=== PATIENT | female | born 1950 | race Caucasian/White ===

== ENCOUNTER → 2025-01-19 08:14 | Outpatient (REF) | payer MEDICARE, OTHER, SELFPAY | LOC: HWRAD 08:14 | PROVIDERS: ATTENDING PHYSICIAN Obstetrics & Gynecology; FAMILY PHYSICIAN Family Medicine | DX: R10.2 Pelvic and perineal pain (principal) | CPT/HCPCS: 76830; 76856 ==

== ENCOUNTER → 2025-02-12 09:32 | Outpatient (REF) | payer MEDICARE, OTHER, SELFPAY | LOC: RAD 09:32 | PROVIDERS: ATTENDING PHYSICIAN Surgery; FAMILY PHYSICIAN Internal Medicine | DX: N32.1 Vesicointestinal fistula (principal) | CPT/HCPCS: 74177; Q9967 ==

== ENCOUNTER 2025-05-11 05:55 | Inpatient (IN) | payer MEDICARE, OTHER, SELFPAY ==
[2025-05-08 09:39] LABS: Hematocrit 40.1 % (37.0-47.0); Hemoglobin 14.0 g/dL (12.0-16.0); Mean Corp Hgb Conc. 34.9 g/dL (33.0-37.0); Mean Corpuscular Volume 89.1 fL (81.0-99.0); Platelet Count 292 10^3/uL (130-400); Red Cell Dist. Width 12.6 % (11.5-14.5)
[2025-05-08 09:46] LABS: APTT 25.0 Sec (23.4-35.0); INR 1.00; PT 13.5 Sec (11.4-14.6)
[2025-05-08 10:03] LABS: ALT (SGPT) 30 U/L (0-35); AST (SGOT) 31 U/L (14-36); Albumin 4.6 g/dl (3.5-5.0); Alkaline Phosphatase 58 U/L (38-126); Blood Urea Nitrogen 13 mg/dl (7-17); Calcium 10.0 mg/dl (8.4-10.2); Carbon Dioxide 31 mmol/L (22-30); Chloride 99 mmol/L (98-107); Glucose 101 mg/dl (70-99); Potassium 4.2 mmol/L (3.5-5.1); Sodium 137 mmol/L (135-145); Total Protein 8.1 g/dl (6.3-8.2); eGFR > 60.00
[2025-05-08 11:50] LABS: Glycohemoglobin (HgbA1c) 5.7 % (4.0-5.6)
[2025-05-08 14:08] VITALS: BMI 26.0
--- NOTE | 2025-05-08 15:30 | PTCARENOTE ---
Dr Hollingsworth reviewed abnormal EKG, no further action requested.
[2025-05-11] VITALS (13 sets, daily range): BP systolic 0–160; BP diastolic 54–89; BMI 26.0
[2025-05-11] MEDS: HEPARIN 5000 UNITS SC (06:31)
[2025-05-11] MEDS: TYLENOL 1000 MG PO (06:31)
[2025-05-11] MEDS: NORMOSOL-R/PLASMALYTE-A 1000 IV ×3 (06:48→23:34)
--- NOTE | 2025-05-11 11:54 | W.IMMPOSTOP ---
Documented by User: LIZY Cisneros 05/11/25 12:01
Surgical Immed Post Op Note
-
Primary Surgeon: Sánchez Larkin M.D.
Assisting Surgeon: IBAN Joe, and HILARY Muñoz
Pre Op Diagnosis: Colovaginal fistula
Post Op Diagnosis: Colovaginal fistula
Procedure Performed: Surgical repair of a colovaginal fistula, resection of the sigmoid colon, ureteral stent placement
Anesthesia Type: General
Specimen / Cultures: Sigmoid colon
Estimated Blood Loss: 15 cc
Complications: None
Operative Findings: Colovaginal fistula, fistula connecting adjacent portions of the bowel

Documented by User: Ezequiel Larkin MD 05/11/25 12:08
Surgical Immed Post Op Note
-
Primary Surgeon: Sánchez Larkin M.D.
Assisting Surgeon: IBAN Joe, and HILARY Muñoz
Pre Op Diagnosis: Colovesical fistula
Post Op Diagnosis: Colovesical fistula
Procedure Performed: Cystoscopy with bilateral ureteral stents/ICG (Abhay Lantigua MD)
Robotic sigmoid colectomy with intracorporeal anastomosis
Robotic cystorraphy by Dr. Lantigua
Anesthesia Type: General
Specimen / Cultures: Sigmoid colon (suture is proximal)
Estimated Blood Loss: 15 cc
Complications: None
Operative Findings: Colovesical fistula to the dome of the bladder on the left
28mm EEA
Normal leak test
#19 Triston drain in the pelvis
Patient's updated via telephone
[2025-05-11] MEDS: TYLENOL 650 MG PO ×3 (13:54→23:34)
[2025-05-11] MEDS: TORADOL 15 MG IV ×2 (13:55→23:34)
--- NOTE | 2025-05-11 14:29 | PTCARENOTE ---
Received patient from PACU via bed around 1330 in stable condition. 3 lap sites to abdomen with surgical glue DARIO as well as 1 suprapubic incision with surgical glue dario. Urinary catheter in place with L uretal stent. Patient denied pain. Patient
oriented to room. Call abdalla in reach.
[2025-05-11] MEDS: REFRESH EYE DROPS (PF) 1 DROPS RIGHT EYE (17:05)
[2025-05-11] MEDS: TYLENOL PO (17:07)
[2025-05-11] MEDS: TORADOL IV (17:45)
[2025-05-11] MEDS: ORETIC 12.5 MG PO (20:57)
[2025-05-11] MEDS: BENICAR 20 MG PO (20:57)
[2025-05-11] MEDS: LIPITOR 10 MG PO (20:57)
[2025-05-12] MEDS: TYLENOL 650 MG PO ×6 (03:06→23:07)
[2025-05-12 03:36] VITALS: BP 105/64
[2025-05-12] MEDS: TORADOL 15 MG IV ×4 (05:07→23:07)
[2025-05-12 05:31] VITALS: BMI 26.7
[2025-05-12 06:00] VITALS: BMI 26.7
[2025-05-12 06:10] VITALS: BMI 26.7
[2025-05-12 06:53] LABS: Hematocrit 31.1 % (37.0-47.0); Hemoglobin 11.0 g/dL (12.0-16.0); Mean Corp Hgb Conc. 35.4 g/dL (33.0-37.0); Mean Corpuscular Volume 88.1 fL (81.0-99.0); Nucleated Red Blood Cells % 0 %; Platelet Count 229 10^3/uL (130-400); Red Cell Dist. Width 12.3 % (11.5-14.5)
[2025-05-12 07:02] LABS: Blood Urea Nitrogen 10 mg/dl (7-17); Calcium 6.8 mg/dl (8.4-10.2); Carbon Dioxide 26 mmol/L (22-30); Chloride 96 mmol/L (98-107); Estimated Creatinine Clearance 75 ml/min; Glucose 113 mg/dl (70-99); Potassium 3.4 mmol/L (3.5-5.1); Sodium 127 mmol/L (135-145); eGFR > 60.00
[2025-05-12 07:20] VITALS: BP 110/62
[2025-05-12] MEDS: LOW STRENGTH ASPIRIN 81 MG PO (07:47)
[2025-05-12] MEDS: CALCIUM GLUCONATE 100 IV (08:50)
[2025-05-12] MEDS: NORMOSOL-R/PLASMALYTE-A 1000 IV (10:26)
[2025-05-12 11:00] VITALS: BP 132/69
[2025-05-12 11:06] LABS: Blood Urea Nitrogen 9 mg/dl (7-17); Calcium 7.6 mg/dl (8.4-10.2); Carbon Dioxide 24 mmol/L (22-30); Chloride 96 mmol/L (98-107); Estimated Creatinine Clearance 64 ml/min; Glucose 109 mg/dl (70-99); Potassium 3.4 mmol/L (3.5-5.1); Sodium 126 mmol/L (135-145); eGFR > 60.00
--- NOTE | 2025-05-12 11:59 | W.PN.CRS1 ---
Today's Communication / Plan
-
clears
consult hospitalist
ca gluconate x 1
lovenox
maintain rhoades
Assessment/Plan
-
POD#1 Surgical repair of a colovaginal fistula, resection of the sigmoid colon, ureteral stent placement
Vitals: normal,
Sodium: 127, Potassium: 3.4, Calcium 6.8, Hgb 11.0 (14.0), WBC 8.5
-Advance diet to fulls when passing flatus, Keep on clears for now
-D/C IVFs when tolerating po intake
-OOB as tolerated
-Will consult medicine given electrolyte abnormalities
-Calcium gluconate 1g x 1
-Keep rhoades in for now
-Maintain drain until discharge
-Stent removed at bedside
-Start Lovenox for dvt prophylaxis, teds/scds in place
-Pain control: Tylenol/Toradol standing, Dilaudid prn
-OR pathology pending
Subjective Data
Procedure
05/11 - Surgical repair of a colovaginal fistula, resection of the sigmoid colon, ureteral stent placement
Subjective Data
Date of Service: May 12, 2025
Patient states she has some mild pain. Denies nausea or vomiting. She has not had flatus yet. She is very hungry.
Objective Data
-
Vital Signs
Temp Pulse Resp BP Pulse Ox
98.3 F 70 18 132/69 98
05/12/25 11:00 05/12/25 11:00 05/12/25 11:00 05/12/25 11:00 05/12/25 11:00
Intake & Output
05/11/25 05/12/25 05/13/25
06:59 06:59 06:59
Intake Total 3820 / 3820 480 / 480
Output Total 2029 / 2029 1000 / 1000
Balance 1790 / 1790 -520 / -520
Intake:
Oral fluids 1919 480 / 480
IV fluids (Total) 1899
normosol 200 / 200
Output:
Drain Output (Total) 130 / 130
Right Middle Abdomen Tacho- 130 / 130
Medina A
Urine, Rhoades 1899 1000 / 1000
Lab Results
05/12/25 05:57
05/12/25 10:33
Physical Exam
-
General: No Acute Distress and AOx3
Abdomen: Soft, Non Distended and Non Tender
Skin: Warm and Dry
Incision: Clear, Dry, Intact
[2025-05-12] MEDS: KCL 160 MEQ IV (12:39)
--- NOTE | 2025-05-12 13:51 | CM ---
Patient seen at bedside on . Patient lives with family. Patient lives in a one story, and has a cane/walker at home but does not use them. Patient PCP is Dr. Elder and patient uses the [facility]. Patient plan is for home with no
needs at this point. CM will continue to follow for discharge planning needs.
Plan; home with no needs vs home with VN
[2025-05-12 15:05] VITALS: BP 106/66
--- NOTE | 2025-05-12 16:04 | CON.HOSP ---
Addendum entered and electronically signed by Tamiko Haley MD 05/12/25 17:57:
I personally performed a history and physical exam of the patient and discussed management with the resident. I reviewed the resident's note and agree with the documented findings and plan of care HPI/CC.
GENERAL: well developed, well nourished, female in no apparent distress
HEENT: NC/AT
HEART: regular rate and rhythm, +S1, +S2
LUNGS : clear to auscultation bilaterally
ABDOM: soft, nontender, nondistended, + bowel sounds, JACQUELINE drain in place
EXT: no cyanosis, clubbing, or edema
NEUROLOGIC: grossly intact
: rhoades cath
Electrolyte Imbalance: specifically, hyponatremia, hypokalemia, hypocalcemia--SIADH vs Dilutional Electrolyte Imbalance from IVF intraop and post op--PLUS, HCTZ should be held in the perioperative period as can cause hyponatremia--IVF stopped and pt
placed on fluid restriction--replete potassium and calcium as needed--repeat labs at 1800--if sodium still low, would place HCTZ on hold--expect improvement now that off IVF--serum osmolality, urine osmolality, urine sodium pending
Colovesical Fistula--S/P POD #1 surgical repair of a colovaginal fistula, sigmoid colon resection, and ureteral stent placement--clears--diet as per CRS
Essential Hypertension--continue SELF STORAGE MANAGER olmesartan--continue SELF STORAGE MANAGER hydrochlorothiazide now that IVF off-- consider holding if hyponatremia persists
Hyperlipidemia--Atorvastatin 10 mg OD
Osteoporosis-Alendronate 70mg QWeekly
DVT proph-- Lovenox
code status--Full Code
Thank you for the consult. We will follow with you.
Original Note:
Consultation
-
Date/Time Consultation Requested: 05/12/2025 11:30 am
Date/Time Consultation Performed: 05/12/2025 1:00 am
Requesting Provider: Christina Welch
Performing Provider: Emma Dodson, Mónica Sudha
Reason for Consultation: Hyponatremia, Hypokalemia, Hypocalcemia
Family Physician
-
Family Physician: Fadi Elder
Chief Complaint
-
Hyponatremia, Hypokalemia, Hypocalcemia
History of Present Illness
74-year-old female with a past medical history of diverticulitis, UTI, hypertension, hyperlipidemia, IBS, and anxiety, currently post-operative day 1 following surgical repair of a colovaginal fistula, sigmoid colon resection, and ureteral stent
placement.
The patient was initially referred to Dr. Larkin for evaluation of a colovesical fisula, after developing urinary discomfort and was found to have a urinary tract infection with E. coli, treated with nitrofurantoin. Despite treatment, she developed
pneumaturia and sediment in the urine, along with persistent urinary symptoms. A CT abdomen/pelvis with contrast revealed a fistulous connection between the mid-sigmoid colon and the superior aspect of the urinary bladder, likely secondary to
diverticular disease, which had been identified on a recent colonoscopy. She subsequently underwent a seemingly uncomplicated surgical repair. Postoperatively, the patient has been clinically stable, with no acute complaints or surgical
complications. However, routine lab monitoring revealed persistent electrolyte abnormalities, including hyponatremia, hypokalemia, and hypocalcemia. Repeat labs have confirmed these abnormalities. The surgical team has requested hospitalist
consultation for further evaluation and management of these electrolyte derangements.
The patient denies nausea, vomiting, weakness, shortness of breath. She has not had any bowel movement, but is passing flatus. She is currently attached to a Rhoades catheter and JACQUELINE drain.
Medical History
Social History
Tobacco: Non-smoker
Alcohol: Daily (1 glass red wine every night)
Drug: None
Personal:
Living: With Family
Employment: Retired
Family History
Family History: CAD and Hypertension
Allergies / Home Medications
Allergies reflects when Allergies were last updated in [facility].
Home Medications with original date entered in [facility]
Allergy/Medication List:
Allergies
Allergy/AdvReac Type Severity Reaction Status Date / Time
No Known Allergies Allergy Verified 05/11/25 06:21
Home Medications
Bacillus coagulans 500 million cell-inulin 1.25 gram chewable tablet (Align Dualbiotic) 1 tab PO DAILY Supplement 05/09/25
acetaminophen 325 mg tablet (Tylenol) 325 mg PO ONCE PRN pain 05/09/25
alendronate 70 mg tablet 70 mg PO QWEEK Osteoperosis 05/09/25
alprazolam 0.25 mg tablet 0.25 mg PO DAILY PRN anxiety 05/09/25
aspirin 81 mg tablet 81 mg PO DAILY Blood Clot Prevention/Tx 05/09/25
calcium carbonate (Tums) 200 mg PO BID PRN indigestion 05/09/25
loratadine 10 mg tablet (Claritin) 10 mg PO DAILY PRN Allergies 05/09/25
loteprednol etabonate 0.5 % eye drops,suspension 1 drp ophthalmic (eye) BID PRN tearing 05/09/25
metronidazole 500 mg tablet 500 mg PO DIRECTED 05/09/25
vephuxlqgxjz-wnrslaad-huvkzl tablet 1 tab PO DAILY 05/09/25
neomycin 500 mg tablet 1,000 mg PO DIRECTED 05/09/25
olmesartan 20 mg-hydrochlorothiazide 12.5 mg tablet 1 tab PO HS 05/09/25
simvastatin 10 mg tablet 10 mg PO HS 05/09/25
sodium sul 1.479 gram-potas ch 0.188 gram-magnes sul 0.225 gram tablet (Sutab) 12 tab PO DIRECTED 05/09/25
tacrolimus 0.1 % topical ointment 1 applic topical DAILY 05/09/25
triamcinolone acetonide 55 mcg nasal spray aerosol (Nasacort) 1 spray intranasal DAILY 05/09/25
Review of Systems
-
History Source: Patient
Constitutional: Denies Fever or Fatigue
EENT: Reports No Symptoms
Respiratory: Reports No Symptoms
Cardiac: Reports No Symptoms
Abdomen/GI: Reports Abdominal Pain (Very mild postoperative pain) and Other (No stool yet, passing gas); Denies Nausea or Vomiting
: Reports Rhoades
Musculoskeletal: Denies Edema
Neurological: Denies Dizzy, Headache, Weakness or Numbness
Psych: Reports Calm
Physical Exam
Vital Signs
Vital Signs
Temp Pulse Resp BP Pulse Ox
98.3 F 70 18 132/69 98
05/12/25 11:00 05/12/25 11:00 05/12/25 11:00 05/12/25 11:00 05/12/25 11:00
Physical Exam
General: Well Developed, No Apparent Distress and Comfortable
HEENT: Normocephalic, PERRLA and Other ((+) red, planar, plaque in soft palate)
Respiratory: Clear
Cardiac: S1/S2 and Regular Rhythm
GI: Soft, Non Distended, Tender (Minimally) and Other (hypoactive bowel sounds. (+) mildly erythematous, well approximated incisions. (+) JACQUELINE drain with serosanguinous fluid)
Genito-urinary: Bloody Urine
Musculoskeletal: No Clubbing, No Cyanosis and No Edema
Skin: Warm and Other
Neuro: AO x 3
Psych: Calm
Laboratory Results
-
Laboratory Results
05/12/25 05:57
05/12/25 18:00
PT 13.5 Sec (11.4-14.6) 05/08/25 07:43
INR 1.00 05/08/25 07:43
APTT 25.0 Sec (23.4-35.0) 05/08/25 07:43
Total Bilirubin 1.1 mg/dl (0.2-1.3) 05/08/25 07:43
AST 31 U/L (14-36) 05/08/25 07:43
ALT 30 U/L (0-35) 05/08/25 07:43
Alkaline Phosphatase 58 U/L (38-126) 05/08/25 07:43
Impression / Plan
-
74-year-old female with a past medical history of diverticulitis, UTI, hypertension, hyperlipidemia, IBS, and anxiety, currently post-operative day 1 following surgical repair of a colovaginal fistula, sigmoid colon resection, and ureteral stent
placement presenting with electrolyte derangements.
#Electrolyte Imbalance
-SIADH vs Dilutional Electrolyte Imbalance
#Hyponatremia
on SELF STORAGE MANAGER hyrdochlorothiazide-- will consider holding if hyponatremia persists
-serum osmolality, urine osmolality, urine sodium pending
-Trend BMP
-replete as necessary
#Hypokalemia
3.4-->3.4
-continue to trend BMP
-repleted 20 Meq
-replete if <3.5
#Hypocalcemia
6.8--> 7.6
-albumin pending
-replete as necessary
#Colovesical Fistula
#S/P POD #1 surgical repair of a colovaginal fistula, sigmoid colon resection, and ureteral stent placement
-on clears
-trend wbc, monitor for fever
-wound care
-continue with pain management
-attached to drain, and Rhoades Catheter
#Hypertension
-continue SELF STORAGE MANAGER olmesartan
-continue SELF STORAGE MANAGER hydrochlorothiazide-- consider holding if hyponatremia persists
# Hyperlipidemia
-Atorvastatin 10 mg OD
#Osteoporosis
-Alendronate 70mg QWeekly
DVT prophylaxis: Lovenox
Full Code
[2025-05-12] MEDS: LOVENOX 40 MG SC (17:01)
[2025-05-12 18:26] LABS: ALT (SGPT) 22 U/L (0-35); AST (SGOT) 29 U/L (14-36); Albumin 3.6 g/dl (3.5-5.0); Alkaline Phosphatase 47 U/L (38-126); Blood Urea Nitrogen 10 mg/dl (7-17); Calcium 7.5 mg/dl (8.4-10.2); Carbon Dioxide 29 mmol/L (22-30); Chloride 95 mmol/L (98-107); Estimated Creatinine Clearance 64 ml/min; Glucose 140 mg/dl (70-99); Potassium 3.5 mmol/L (3.5-5.1); Sodium 127 mmol/L (135-145); Total Protein 6.4 g/dl (6.3-8.2); eGFR > 60.00
[2025-05-12] MEDS: LIPITOR 10 MG PO (21:04)
[2025-05-12] MEDS: ORETIC 12.5 MG PO (21:04)
[2025-05-12] MEDS: BENICAR 20 MG PO (21:04)
[2025-05-12 21:09] LABS: Hepatitis C Antibody Negative (Negative)
[2025-05-12 23:00] VITALS: BP 120/65
[2025-05-13] MEDS: TYLENOL 650 MG PO ×6 (03:02→23:25)
[2025-05-13] MEDS: TORADOL 15 MG IV ×4 (05:01→23:25)
[2025-05-13 06:14] VITALS: BMI 26.5
[2025-05-13 07:15] VITALS: BP 146/90
[2025-05-13 07:28] LABS: Hematocrit 34.3 % (37.0-47.0); Hemoglobin 12.0 g/dL (12.0-16.0); Mean Corp Hgb Conc. 35.0 g/dL (33.0-37.0); Mean Corpuscular Volume 88.9 fL (81.0-99.0); Platelet Count 217 10^3/uL (130-400); Red Cell Dist. Width 12.7 % (11.5-14.5)
[2025-05-13] MEDS: LOW STRENGTH ASPIRIN 81 MG PO (08:10)
[2025-05-13 08:12] LABS: Blood Urea Nitrogen 9 mg/dl (7-17); Calcium 8.1 mg/dl (8.4-10.2); Carbon Dioxide 28 mmol/L (22-30); Chloride 104 mmol/L (98-107); Estimated Creatinine Clearance 75 ml/min; Glucose 99 mg/dl (70-99); Potassium 3.8 mmol/L (3.5-5.1); Sodium 133 mmol/L (135-145); eGFR > 60.00
--- NOTE | 2025-05-13 08:20 | W.PN.HOSP.TC ---
Addendum entered and electronically signed by Tamiko Haley MD 05/13/25 12:46:
I saw and evaluated the patient independently. I reviewed the resident�s note and agree with findings and plan as documented by Dr. Dodson.
GENERAL: well developed, well nourished, female in no apparent distress
HEENT: NC/AT
HEART: regular rate and rhythm, +S1, +S2
LUNGS : clear to auscultation bilaterally
ABDOM: soft, nontender, nondistended, + bowel sounds, JACQUELINE drain in place
EXT: no cyanosis, clubbing, or edema
NEUROLOGIC: grossly intact
: rhoades cath removed this AM
Electrolyte Imbalance: specifically, hyponatremia, hypokalemia, hypocalcemia--most likely Dilutional Electrolyte Imbalance from IVF intraop and post op--PLUS, HCTZ should be held in the perioperative period as can cause hyponatremia--IVF stopped and
pt placed on fluid restriction--replete potassium and calcium as needed--expect improvement now that off IVF--all improved
Colovesical Fistula--S/P POD #2 surgical repair of a colovaginal fistula, sigmoid colon resection, and ureteral stent placement--clears--diet as per CRS
Essential Hypertension--continue MEDICAL LABORATORY TECHNOLOGIST olmesartan--continue MEDICAL LABORATORY TECHNOLOGIST hydrochlorothiazide now that IVF off
Hyperlipidemia--Atorvastatin 10 mg OD
Osteoporosis-Alendronate 70mg QWeekly
DVT proph-- Lovenox
code status--Full Code
CRS planning for discharge tomorrow. Will sign off. Call with questions.
Original Note:
Today's Communication/Plan
-
Electrolytes levels are normalizing. Suspect the cause was dilutional hyponatremia, and will correct itself as patient restricts fluid intake, and micturates.
Hospitalist team will sign off.
Recommend continuing fluid restriction until discharge
Assessment / Plan
Assessment / Plan
74-year-old female with a past medical history of diverticulitis, UTI, hypertension, hyperlipidemia, IBS, and anxiety, currently post-operative day 1 following surgical repair of a colovaginal fistula, sigmoid colon resection, and ureteral stent
placement presenting with electrolyte derangements.
#Electrolyte Imbalance
-serum osmolality 258, urine osmolality 141, urine sodium 34
likely dilutional Dilutional Electrolyte Imbalance
-on fluid restriction, (+) diuresis
#Hyponatremia
stable
126--127-->127--> 133
on MEDICAL LABORATORY TECHNOLOGIST hyrdochlorothiazide-- can continue
-Trend BMP
-replete as necessary
#Hypokalemia
resolved
3.4-->3.4--> 3.5-->3.8
-continue to trend BMP
-replete if <3.5
#Hypocalcemia
stable
6.8--> 7.6-->7.5--> 8.1
-albumin 3.6N
-replete as necessary
#Colovesical Fistula
#S/P POD #2 surgical repair of a colovaginal fistula, sigmoid colon resection, and ureteral stent placement
-on low residue, 48oz fluid restriction
-trend wbc, monitor for fever
-wound care
-continue with pain management
-attached to drain
#Hypertension
-continue MEDICAL LABORATORY TECHNOLOGIST olmesartan
-continue MEDICAL LABORATORY TECHNOLOGIST hydrochlorothiazide-- consider holding if hyponatremia persists
# Hyperlipidemia
-Atorvastatin 10 mg OD
#Osteoporosis
-Alendronate 70mg QWeekly
DVT prophylaxis: Lovenox
Full Code
Anticipated Discharge: Within 24 hours
Subjective/Interval History
-
Date of Service: May 13, 2025
The patient states that she has been spontaneously passing a lot of urine. She has some very minimal abdominal pain, but tolerable. She has not been able to pass bowel yet but has been passing gas. She denies lightheadedness, dizziness,
palpitations, shortness of breath, and chest pain
Objective Data
-
Labs:
Laboratory Results
05/13/25
07:14
WBC 6.5
Hgb 12.0
Hct 34.3 L
Plt Count 217
Sodium 133 L
Potassium 3.8
Chloride 104
Carbon Dioxide 28
BUN 9
Creatinine 0.6
Glucose 99
Calcium 8.1 L
Vital Signs:
Vital Signs
Temp Pulse Resp BP Pulse Ox
97.7 F 72 16 120/65 97
05/12/25 23:00 05/12/25 23:00 05/12/25 23:00 05/12/25 23:00 05/12/25 23:00
I&O
05/12/25 05/13/25 05/14/25
06:59 06:59 06:59
Intake Total 3820 / 3820 960 / 960
Output Total 2029 / 2029 4762 / 4762
Balance 1790 / 1790 -3802 / -3802
Review of Systems
-
History Source: Patient
Constitutional: Reports Fatigue; Denies Fever, No Appetite or Weakness
EENT: Reports No Symptoms Reported
Respiratory: Reports No Symptoms
Cardiac: Reports No Symptoms
Abdomen/GI: Reports Abdominal Pain (minimal); Denies Nausea, Vomiting or Diarrhea
Musculoskeletal: Reports No Symptoms
Neuro: Denies Headache, Weakness, Numbness, Ataxia or Lightheadedness
Endocrine: Reports Polyuria
Physical Exam
-
General: No Apparent Distress, Comfortable and Conversant
HEENT: Normocephalic and Moist Mucous Membranes
Respiratory: Clear to Auscultation
Cardiac: Regular Rhythm and S1/S2
GI: Soft, Nondistended, Tender and Other (Hyperactive bowel sounds)
Musculoskeletal: No Clubbing and No Cyanosis
Skin: Warm
Neuro: AO x 3 and No Motor Deficits
Psych: Calm
--- NOTE | 2025-05-13 08:54 | W.PN.CRS1 ---
Today's Communication / Plan
-
dc rhoades
anticipate dc in AM
Assessment/Plan
-
POD#2 Surgical repair of a colovaginal fistula, resection of the sigmoid colon, ureteral stent placement
Vitals: normal,
WBC 6.5, Hgb 12.0
K: 3.8, Na 133
-Tolerating low residue
-OOB as tolerated
-Appreciate hospitalist. Electrolytes have essentially corrected.
-D/C rhoades
-Maintain drain until discharge
-Stent removed at bedside
-Lovenox for dvt prophylaxis, teds/scds in place
-Pain control: Tylenol/Toradol standing, Dilaudid prn
-OR pathology pending
-Likey d/c in AM
Subjective Data
Procedure
05/11 - Surgical repair of a colovaginal fistula, resection of the sigmoid colon, ureteral stent placement
Subjective Data
Date of Service: May 13, 2025
Patient states she feels okay. Denies nausea or vomiting. She is tolerating low residue. Denies nausea or vomiting. Pain is controlled.
Objective Data
-
Vital Signs
Temp Pulse Resp BP Pulse Ox
97.7 F 72 16 120/65 97
05/12/25 23:00 05/12/25 23:00 05/12/25 23:00 05/12/25 23:00 05/12/25 23:00
Intake & Output
05/12/25 05/13/25 05/14/25
06:59 06:59 06:59
Intake Total 3820 / 3820 960 / 960
Output Total 2029 4762 / 4762 600 / 600
Balance 1790 / 1790 -3802 / -3802 -600 / -600
Intake:
Oral fluids 1920 / 1920 960 / 960
IV fluids (Total) 1899
normosol 200 / 200
Output:
Drain Output (Total) 130 / 130 140 / 140
Right Middle Abdomen Tacho- 130 / 130 140 / 140
Medina A
Urine, Rhoades 1899 4622 / 4622 600 / 600
Lab Results
05/13/25 07:14
05/13/25 07:14
Physical Exam
-
General: No Acute Distress and AOx3
Abdomen: Soft, Non Distended and Non Tender
Skin: Warm and Dry
Incision: Clear, Dry, Intact
--- NOTE | 2025-05-13 10:39 | CM ---
Patient seen at bedside on . Patient states that she has a walker at home, her sisters are nurses and another family member is an OT. Patient declined needing VN at this time. IMM given and signed form placed on chart. Family to provide
transportation. CM will continue to follow for discharge planning needs.
Plan; home with no needs anticipated.
[2025-05-13 14:55] VITALS: BP 133/79
[2025-05-13] MEDS: LOVENOX 40 MG SC (17:21)
[2025-05-13] MEDS: BENICAR 20 MG PO (22:00)
[2025-05-13] MEDS: ORETIC 12.5 MG PO (22:00)
[2025-05-13] MEDS: LIPITOR 10 MG PO (22:00)
[2025-05-13 23:00] VITALS: BP 138/70
[2025-05-14] MEDS: TYLENOL PO (05:10)
[2025-05-14 06:00] VITALS: BMI 26.4
[2025-05-14] MEDS: FLUSH (NSS) 2 FLUSH IV (06:17)
[2025-05-14] MEDS: TORADOL 15 MG IV ×2 (06:17→11:39)
[2025-05-14 07:15] VITALS: BP 153/83
[2025-05-14 07:31] LABS: Hematocrit 36.7 % (37.0-47.0); Hemoglobin 12.7 g/dL (12.0-16.0); Mean Corp Hgb Conc. 34.6 g/dL (33.0-37.0); Mean Corpuscular Volume 92.0 fL (81.0-99.0); Platelet Count 243 10^3/uL (130-400); Red Cell Dist. Width 12.9 % (11.5-14.5)
[2025-05-14 07:57] LABS: ALT (SGPT) 42 U/L (0-35); AST (SGOT) 50 U/L (14-36); Albumin 3.5 g/dl (3.5-5.0); Alkaline Phosphatase 48 U/L (38-126); Blood Urea Nitrogen 12 mg/dl (7-17); Calcium 8.9 mg/dl (8.4-10.2); Carbon Dioxide 29 mmol/L (22-30); Chloride 103 mmol/L (98-107); Estimated Creatinine Clearance 64 ml/min; Glucose 95 mg/dl (70-99); Potassium 3.9 mmol/L (3.5-5.1); Sodium 135 mmol/L (135-145); Total Protein 6.5 g/dl (6.3-8.2); eGFR > 60.00
[2025-05-14] MEDS: LOW STRENGTH ASPIRIN 81 MG PO (08:53)
[2025-05-14] MEDS: TYLENOL 650 MG PO ×2 (08:53→11:39)
--- NOTE | 2025-05-14 10:24 | W.PN.CRS1 ---
Today's Communication / Plan
-
Discharge
Assessment/Plan
-
POD# 3 surgical repair of a colovaginal fistula, resection of the sigmoid colon, ureteral stent placement
Vitals: normal,
Labs: Normal
-Tolerating low residue
-OOB as tolerated
-Appreciate hospitalist. Electrolytes have essentially corrected.
-Drain removed at bedside
-Lovenox for dvt prophylaxis, teds/scds in place
-Pain control: Tylenol/Toradol standing, Dilaudid prn
-OR pathology pending
- Okay for discharge today. All discharge instructions discussed with patient including medication, tibial's, and follow-up. All questions addressed.
Subjective Data
Procedure
05/11 - Surgical repair of a colovaginal fistula, resection of the sigmoid colon, ureteral stent placement
Subjective Data
Date of Service: May 14, 2025
Patient states she is feeling well today. Her pain is controlled. She has no complaints. Denies nausea or vomiting. Has bowel function. She is ready to go home.
Objective Data
-
Vital Signs
Temp Pulse Resp BP Pulse Ox
97.9 F 76 18 153/83 97
05/14/25 07:15 05/14/25 07:15 05/14/25 07:15 05/14/25 07:15 05/14/25 07:15
Intake & Output
05/13/25 05/14/25 05/15/25
06:59 06:59 06:59
Intake Total 960 / 960 1260 / 1260
Output Total 4762 / 4762 885 / 885
Balance -3802 / -3802 375 / 375 -
Intake:
Oral fluids 960 / 960 1260 / 1260
Output:
Drain Output (Total) 140 / 140 110 / 110
Right Middle Abdomen Tacho- 140 / 140 110 / 110
Medina A
Urine, Bhandari 4622 / 4622 600 / 600
Urine, Voided 175 / 175
Other:
Number of approximated MODERATE 1
amounts of urine
Number of approximated LARGE 1
amounts of urine
Number of unmeasured liquid
stools
Rectum 1
Lab Results
05/14/25 06:27
05/14/25 06:27
Physical Exam
-
General: No Acute Distress and AOx3
Abdomen: Soft, Non Distended and Non Tender
Skin: Warm and Dry
Incision: Clear, Dry, Intact
--- NOTE | 2025-05-14 11:41 | CM ---
CM following re: discharge planning.
Reviewed pt's chart, met with pt.
Pt is POD# 3 surgical repair of a colovaginal fistula, resection of the sigmoid colon, ureteral stent placement. Per Colorectal surgery pt is doing well and will be discharged today. Pt is aware, expressed her agreement and she stated her spouse
will transport home. Pt declined VN services today again stating her sisters ate nurses and they help if needed.
IMM reviewed, placed on chart, pt has a copy.
D/C plan: home with family support. Spouse to transport.
[2025-05-14 12:31] VITALS: BP 156/93
== END 2025-05-14 12:50 | disposition home or self-care (01) | DRG 654 ==
LOC: 2 SOUTH 05:55
PROVIDERS: Physician Assistant; Specialist; ADMITTING PHYSICIAN Surgery; FAMILY PHYSICIAN Family Medicine; OTHER PHYSICIAN Internal Medicine
PROC: 0TQB4ZZ Repair Bladder, Percutaneous Endoscopic Approach (ICD-10-PCS; 2025-05-11)
PROC: 8E0W4CZ Robotic Assisted Procedure of Trunk Region, Percutaneous Endoscopic Approach (ICD-10-PCS; 2025-05-11)
PROC: 0DTN4ZZ Resection of Sigmoid Colon, Percutaneous Endoscopic Approach (ICD-10-PCS; 2025-05-11)
DX: N32.1 Vesicointestinal fistula (principal); E87.1 Hypo-osmolality and hyponatremia; N39.0 Urinary tract infection, site not specified; Z79.82 Long term (current) use of aspirin; E87.6 Hypokalemia; E83.51 Hypocalcemia; I10 Essential (primary) hypertension; E78.5 Hyperlipidemia, unspecified; M81.0 Age-related osteoporosis without current pathological fracture; F41.9 Anxiety disorder, unspecified; K58.9 Irritable bowel syndrome, unspecified
CPT/HCPCS: 36415; 80048; 80053; 83036; 83930; 83935; 84300; 85025; 85027; 85610; 85730; 86803; 86850; 86900; 86901; 88307; 93005; J1335